=== PATIENT | female | born 1985 | race Caucasian/White ===

== ENCOUNTER 2016-09-12 10:09 | Emergency (ER) | payer OTHER ==
[~2016-09-12] VITALS: Ht 170.2 cm; Wt 61.4 kg
[2016-09-12 10:14] VITALS: BP 154/96; PULSE 105; RESP 20; O2SAT 100
--- NOTE | 2016-09-12 10:29 | ED.REPORT ---
HPI-Back Pain Under 40 Date of Service Sep 12, 2016 ED Provider: Aravind Panchal MD Pt is a healthy 31 year old female who presents to the ED with complaints of back pain that started 3-4 days ago. She reports that she has had back pain in the past, but never this severe. She denies any injury, she thought that this began after she slept abnormally, but it has been consistent since its onset. She reports that this is unable to be alleviated with ibuprofen. Pt denies any constipation, hematuria, incontinence, numbness or tingling in her lower extremities, or any other symptoms. Nursing Notes Stated Complaint: BACK PAIN Chief Complaint: Back Pain or Injury Nursing Notes Reviewed: Yes Allergies: Coded Allergies: No Known Allergies (Unverified , 09/12/16) Scheduled PRN Cyclobenzaprine (Cyclobenzaprine) 5 Mg Tablet 5 MG PO HS PRN PRN Spasm Ibuprofen (Ibuprofen) 800 Mg Tablet 800 MG PO TID PRN PRN For Pain General Time Seen by MD: 10:23 Chief Complaint Back pain Hx Obtained From: Patient Arrived By: Walk-in Sudden in Onset?: Yes Onset Occurred: 3 days ago Symptom Duration: Since onset Quality: Painful Severity: Current: Moderate Severity: Maximum: Moderate Similar Sx Previous: Yes Past Medical History Past Medical History Denies Ambulatory Status Independent Review of Systems Constitutional: Denies: Chills, Fever, Malaise, Weakness - generalized Respiratory: Denies: Non-productive cough, Shortness of breath, Wheezing Cardiovascular: Denies: Chest pain, Syncope GI: Denies: Abdominal pain, Nausea, Vomiting Female: Denies: Dysuria, Flank pain, Urinary urgency Musculoskeletal: Reports: Back pain Neurologic: Denies: Change LOC, Dizziness, Headache, Syncope, Weakness Complete sys rev & neg: except as marked. Physical Exam Initial Vital Signs Vital Signs (First) Date Time Temp Pulse Resp B/P Pulse Ox O2 Delivery O2 Flow Rate FiO2 09/12/16 10:14 36.7 105 20 154/96 100 Room Air Initial VS: Reviewed Head / Eyes: Atraumatic, Normocephalic, PERRL ENT: Mucous membranes moist, Conjunctiva normal, No scleral icterus Neck: Supple, Non-tender, Full range of motion Respiratory: Breath sounds normal, Clear to auscultation, No respiratory distress Cardiovascular: Regular rate & rhythm, Heart sounds normal, Intact distal pulses Abdomen / GI: Soft, Non-tender, No guarding, No rebound, No distention Skin: Warm, Dry, No cyanosis General/Constitutional: Awake, Alert Distress / Hydration: Positive: Distress mild Behavior: Positive: Tearful Appearance / Presentation: Positive: Uncomfortable Back: Atraumatic, Inspection NL, No midline vertebral tend, No CVA tenderness Diffuse tenderness Neurologic: Oriented X3, Speech NL, No motor deficits, No sensory deficits, CN II - XII intact Interpretation & Diagnostics Lab Results Interpretation Test 09/12/16 10:53 Hold Urine Received (Received) Lab Results Interpretation: CT KUB: IMPRESSION: No urolithiasis or evidence of urinary obstruction. No acute abnormality. No visualized etiology for right flank pain. Normal appendix Dictated by: Kolby Carlton M.D. on 09/12/2016 at 12:00 Re-Eval/Medical Decision Med Decision/Clinical Course 31-year-old female history of chronic back pain presenting with diffuse low back pain times several days. No red flags symptoms. It is right lower back. No nausea or vomiting, fevers chills, abdominal pain. Her exam is benign. Diffuse right lower back tenderness. CT KUB shows no kidney stones. Urine negative for infection and negative for . Trace blood. She has recently finished her menstrual cycle. Likely musculoskeletal. We will prescribe NSAIDs, muscle relaxers to use as needed. Counseled no alcohol or driving while on muscle relaxer's. Follow-up primary doctor as needed. Return precautions given. Red flag symptoms, vomiting, fevers chills, any other worsening symptoms. Source of Hx: Old records Re-Evaluation/Progress : Time of Eval: 12:18 Re-Evaluation/Progress Note: Pt is rechecked and informed of her labs and imaging and the plan to discharge her at this time. She understands and agrees, all questions are addressed. Counseled Regarding: Diagnosis, Lab results, Need for follow-up, When/why to return to ED Discharge & Departure Impression: Primary Impression: Back pain Disposition: Home All VS Reviewed: Yes Condition: Stable Patient Instructions: Back Pain (ED) Additional Instructions: Your labs and imaging were reassuring today. I believe your symptoms are musculoskeletal. Take NSAIDS and Flexeril to alleviate your symptoms. NOTE: Flexeril may cause drowsiness, do not drive or drink alcohol while on this medication. I advise gentle stretching and alternated ice and heat. Follow up with your primary care provider later this week for further treatment. Return to the emergency department with any worsening or concerning symptoms. Referrals: [facility] Portions of this note were transcribed by Marilu Segundo. I, Dr. Panchal personally performed the history, physical exam and medical decision-making; I reviewed and confirmed the accuracy of the information in the transcribed note. Signed by: Kelley Betts, 09/12/2016 12:17 copies to: [facility] Aravind Panchal MD Sep 12, 2016 10:29 MORE SEGUNDO Sep 12, 2016 10:37
[2016-09-12] MEDS ORDERED: HYDROcodone-APAP 10-325 mg PO ONE (11:45)
--- NOTE | 2016-09-12 12:07 | DRSVH ---
PROCEDURE: CT KUB ([id number]) INDICATIONS: R flank pain r/o kidney stone TECHNIQUE: Noncontrast 5 mm thick sections acquired from the diaphragms to the symphysis. 5 mm thick coronal an d sagittal reformats were then performed. For radiation dose reduction, the following was used: aut omated exposure control, adjustment of mA and/or kV according to patient size. COMPARISON: None. FINDINGS: Image quality: Excellent. Lung bases: Lung bases are clear. Heart size is normal. Urinary system: Both kidneys are normal in size. No kidney stones. No hydronephrosis or perinephri c fat stranding. Both ureters appear non-dilated throughout their expected courses. Bladder wall th ickness is normal; no calcified bladder stones. Other solid organs: Liver and spleen are normal in size. Gallbladder unremarkable. Pancreas is nor mal in contours. No adrenal nodules. Peritoneum and bowel: Unenhanced bowel loops demonstrate normal wall thickness and caliber. No free fluid or air. Normal appendix. Rectum grossly unremarkable Nodes and vessels: No retroperitoneal or mesenteric adenopathy by size criteria. Aorta and inferior vena cava are normal in caliber. Abdominal wall: No ventral hernias. Pelvis: No free pelvic fluid. No inguinal hernias or adenopathy. Bones: No suspicious bony lesions. No vertebral body compression fractures. IMPRESSION: No urolithiasis or evidence of urinary obstruction. No acute abnormality. No visualized etiology for right flank pain. Normal appendix Dictated by: Kolby Carlton M.D. on 09/12/2016 at 12:00 Approved by: Kolby Carlton M.D. on 09/12/2016 at 12:05
[2016-09-12] MEDS ORDERED: IBUP800T28 PO (12:10)
[2016-09-12] MEDS ORDERED: CYCL5TAB PO (12:10)
[2016-09-12 12:25] VITALS: BP 103/61; PULSE 61; O2SAT 99
[2016-09-12 12:33] VITALS: BP 102/65; PULSE 62; RESP 16; O2SAT 98
== END 2016-09-12 12:35 | disposition home or self-care (01) ==
LOC: SED 10:09
DX: M54.5 Low back pain (principal)
CPT/HCPCS: 74176; 81025; 96372; 99285; J1885